=== PATIENT | female | born 1975 | race Caucasian/White ===

== ENCOUNTER 2018-11-22 16:51 | Emergency (ER) | payer MEDICAID ==
[~2018-11-22] VITALS: Ht 157.5 cm; Wt 69.9 kg
[2018-11-22 16:55] VITALS: BP 170/86; Ht 157.5 cm; Wt 69.9 kg
== END 2018-11-22 20:05 | disposition home or self-care (01) ==
LOC: ED 16:51
DX: B02.9 Zoster without complications (principal); Z90.710 Acquired absence of both cervix and uterus

== ENCOUNTER 2019-01-19 20:30 | Emergency (ER) | payer MEDICAID ==
[~2019-01-19] VITALS: Ht 157.5 cm; Wt 68.5 kg
[2019-01-19 20:51] VITALS: Ht 157.5 cm; Wt 68.5 kg
[2019-01-19 23:25] VITALS: BP 115/59
== END 2019-01-19 23:25 | disposition home or self-care (01) ==
LOC: ED 20:30
DX: N12 Tubulo-interstitial nephritis, not specified as acute or chronic (principal); Z87.19 Personal history of other diseases of the digestive system; Z90.710 Acquired absence of both cervix and uterus
CPT/HCPCS: J0696; J1885